=== PATIENT | male | born 1960 | race Caucasian/White ===

== ENCOUNTER → 2019-02-24 09:27 | Outpatient (CLI) | payer OTHER, SELFPAY ==
[2019-02-24 10:14] LABS: Appearance Urine UA SL CLOUDY; Bilirubin Urine UA NEGATIVE (NEGATIVE); Color Urine UA YELLOW; Glucose Urine UA NEGATIVE (Negative); Ketones Urine UA NEGATIVE (NEGATIVE); Leukocyte Esterase Urine UA NEGATIVE (NEGATIVE); Nitrite Urine UA NEGATIVE (Negative); Occult Blood Urine UA NEGATIVE (Negative); Protein Urine UA NEGATIVE (Negative); Specific Gravity Urine UA 1.025 (1.000-1.035); Urobilinogen Urine UA 0.2 E.U./dL (0.2)
[2019-02-24 10:52] LABS: Hematocrit 44.6 % (41-53); Hemoglobin 15.4 g/dL (13.5-17.5); Mean Corpuscular HGB Conc 34.4 % (30-36); Mean Corpuscular Hemoglobin 30.8 PG (26-34); Mean Corpuscular Volume 89.5 fL (80-100); Platelet Count 226 X10^3/uL (150-400); Red Blood Cell Count 4.98 X10^6/uL (4.5-5.9); Red Cell Distribution Width 12.9 % (11.6-14.8); White Blood Cell Count 8.5 X10^3/uL (4.5-11.0)
[2019-02-24 11:46] LABS: Alanine Aminotransferase 23 IU/L (21-72); Albumin 4.7 g/dL (3.5-5.0); Albumin Globulin Ratio 1.8 (1.0-2.8); Alkaline Phosphatase 49 U/L (38-126); Aspartate Aminotransferase 22 IU/L (17-59); Bilirubin Total 0.6 mg/dL (0.2-1.3); Blood Urea Nitrogen 18 mg/dL (9-20); Calcium 9.7 mg/dL (8.4-10.2); Carbon Dioxide 27 mmol/L (22-32); Chloride 103 mmol/L (98-107); Cholesterol 215 mg/dL (140-199); Estimated Glomerular Filt Rate > 60.0 mL/min (>60); Globulin 2.6 g/dL (1.7-4.1); Glucose 101 mg/dL (70-100); HDL Cholesterol 33 mg/dL (40-60); HEMOLYSIS < 15 (0-50); LDL Cholesterol Calculated 148 mg/dL (<100); Potassium 4.3 mmol/L (3.4-5.1); Sodium 138 mmol/L (137-145); Total Protein 7.3 g/dL (6.3-8.2); Triglycerides 171 mg/dL (35-150)
[2019-02-24 12:16] LABS: Thyroid Stimulating Hormone 1.31 uIU/mL (0.47-4.68)
[2019-02-24 12:17] LABS: Prostate Specific Antigen Scrn 0.498 ng/mL (0.1-4.0)
[2019-02-24 12:52] LABS: Neutrophils Absolute Manual 5015 /uL (3000-5900); RBC Morphology Normal Morphology; Total Cells Counted 100
== END ==
PROVIDERS: PCP Family Medicine; Visit Provider Family Medicine
DX: Z12.5 Encounter for screening for malignant neoplasm of prostate (principal); Z13.220 Encounter for screening for lipoid disorders; Z13.29 Encounter for screening for other suspected endocrine disorder; Z51.81 Encounter for therapeutic drug level monitoring
CPT/HCPCS: 36415; 80053; 80061; 81003; 84403; 84443; 85025; G0103